=== PATIENT | male | born 2000 | race Caucasian/White ===

== ENCOUNTER 2022-05-05 20:52 | Emergency (ER) | payer OTHER, SELFPAY ==
[2022-05-05 21:01] VITALS: BP 124/82; PULSE 78; RESP 14; TEMP 36.8; O2SAT 97
[2022-05-05] MEDS: Lidocaine 1% Multi-Dose 20 ML VIAL (21:12)
--- NOTE | 2022-05-05 21:13 | ED.GENADUL_ITS ---
Discharge Plan Disposition Patient Disposition: HOME Condition: Stable Discharge Details Chief Complaint: Orthopedic Clinical Impression: Injury of right middle finger Primary Care Provider: Melany,Local ED Provider: Shan Damon Home Meds and New Rx's Prescriptions: No Action No Known Home Meds Discharge Instructions Additional Instructions: call orthopedics tomorrow for an appointment for reevaluation of your finger and tendons your xray did not show a broken bone you can take ibuprofen and tylenol as needed for pain, follow dosing instructions on packaging Referrals: Martin Mondragon MD [ [facility] STAFF PHYSICIAN] - Medical Decision Making 22 yo male with no chronic medical problems comes in with cc of right distal middle finger injury. HE states tonight he was playing basketball when another player came down and hit his right distal middle finger. He denies falls or other injuries. He has pain only of the distal right middle finger. His right middle finger at the dip joint is in flexion and can't extend it. He has no other tenderness other than the dip joint. no open skin and normal cap refill. Suspect dip joint dislocation, will obtain xrays to further evaluate xray shows no obvious fracture or dislocation, suspect extensor tendon injury, will place in splint and place on ortho follow up list. Return precautions given Differential Diagnosis Differential Diagnosis: dislocation, fracture Imaging Data Radiologic Study: Attestation: I personally reviewed and interpreted this imaging study as follows: Imaging: X-Ray Radiologist's impression: IMPRESSION: Contracture of the distal 3rd interphalangeal joint. No discrete fracture HPI General Mode of arrival: ambulatory . Date/Time Provider Initiated Documentation: 05/05/22 21:06 . Limitations to Documentation: no limitations . Information obtained by: patient . History of Present Illness 22 year old M presents to the emergency department with the chief complaint of right middle finger pain, described as moderate, and it has been constant. No relieving factors improve symptom(s), No exacerbating factors reported . Patient notes no other symptoms.. Patient did receive the following treatments prior to arrival, none Related Data Home Medications Medication Instructions Recorded Confirmed Unknown [No Known Home Meds] 05/05/22 05/05/22 Allergies Allergy/AdvReac Type Severity Reaction Status Date / Time No Known Allergies Allergy Unverified 05/05/22 21:06 General Stated Complaint: Orthopedic AZIZA: 4 Review of Systems All systems reviewed & are unremarkable except as noted in HPI and below Constitutional Constitutional: Denies chills, Denies fever(s) and Denies weakness Cardiovascular Cardiovascular: Denies chest pain and Denies dyspnea Respiratory Respiratory: Denies cough and Denies dyspnea Gastrointestinal Gastrointestinal: Denies abdominal pain, Denies nausea and Denies vomiting Neurologic Neurologic: Denies weakness PFSH All Active Problems (Updated 05/05/22 @ 22:17 by Shan Damon MD) Injury of right middle finger (Acute) Social History Smoking/Tobacco Use Status: Never Smoking risk assessment performed?: Yes Alcohol Intake: never Substance use type: does not use Do you feel safe at home: Yes Do you feel safe in your relationship?: Yes Exam Const General: no acute distress Orientation: alert HENMT Head: normal to inspection Ears: external ears normal General nose exam: external nose normal Mouth: moist mucous membranes Eyes General: appearance normal, both eyes and all related structures Neck Neck: normal visual inspection Resp Effort & Inspection: normal respiratory effort and able to speak in complete sentences Cardio Rate: regular rate Skin General skin exam: no rashes or lesions noted Neuro General: patient alert and patient oriented x3 Extrem General: capillary refill normal Psych Mental Status: mental status grossly normal Course Vital Signs Vital signs: Vital Signs Temperature 36.8 C 05/05/22 21:01 Pulse 78 05/05/22 21:01 Respiratory Rate 14 05/05/22 21:01 Blood Pressure 124/82 05/05/22 21:01 Pulse Oximetry 97 05/05/22 21:01 Temperature 36.8 C 05/05/22 21:01 Temperature Source Skin 05/05/22 21:01 Pulse 78 05/05/22 21:01 Respiratory Rate 14 05/05/22 21:01 Blood Pressure 124/82 05/05/22 21:01 Blood Pressure Position Sitting 05/05/22 21:01 Pulse Oximetry 97 05/05/22 21:01 Oxygen Delivery Method Room Air 05/05/22 21:01 Oxygen Flow Rate 0 05/05/22 21:01 Pain Level 0 05/05/22 21:01 Comment denies ice or otc pain relief 05/05/22 21:01
--- NOTE | 2022-05-05 21:34 | DI.RAD_ITS ---
Exam(s) XR FINGER RT MIDDLE EXAM: XR FINGER RT MIDDLE CLINICAL HISTORY: distal finger deformity. TECHNIQUE: 2D digital imaging was performed. COMPARISON: No exams were available for comparison FINDINGS: 3 views No evidence of acute fracture but there is a flexion deformity at the level of the DIP joint of the 3 rd-middle finger. This implies unopposed flexion most probably related to pathology of the extensor tendon. IMPRESSION: DATA REPOSITORY: RADIATION DOSE DELIVERED:
--- NOTE | 2022-05-05 21:37 | DI.VRAD_ITS ---
PROCEDURE INFORMATION: Exam: XR Right Finger(s) Exam date and time: 05/05/2022 9:27 PM Age: 22 years old Clinical indication: Other: Distal finger deformity TECHNIQUE: Imaging protocol: Radiologic exam of the Right fingers. Views: Minimum 2 views. COMPARISON: No relevant prior studies available. FINDINGS: Bones/joints: Contracture of the distal 3rd interphalangeal joint. No discrete fracture or dislocation Soft tissues: Swelling of the 3rd finger IMPRESSION: Contracture of the distal 3rd interphalangeal joint. No discrete fracture Dictated and Authenticated by: Seamus Cook MD. Ordering:BUSHRA Torrez MD
== END 2022-05-05 22:21 | disposition home or self-care (01) ==
PROVIDERS: Emergency Provider Emergency Medicine
DX: S69.91XA Unspecified injury of right wrist, hand and finger(s), initial encounter (principal); W50.0XXA Accidental hit or strike by another person, initial encounter; Y93.67 Activity, basketball
CPT/HCPCS: 29130; 99283; 73140; 99282; J3490

== ENCOUNTER 2022-07-19 15:55 | Outpatient (CLI) | payer OTHER, SELFPAY ==
--- NOTE | 2022-07-19 15:45 | DI.RAD_ITS ---
Exam(s) XR ANKLE RT COMPLETE EXAM: XR ANKLE RT COMPLETE CLINICAL HISTORY: ankle pain. TECHNIQUE: 2D digital imaging was performed of the right ankle. Three images were obtained. AP, la teral and oblique views were obtained. COMPARISON: DX Ankle 3 View RT from 07/11/2022 FINDINGS: BONES: The triangular density at the inferior tip of the lateral malleolus is unchanged. No bony tray tructive lesion is seen. JOINTS: The ankle mortise is normally aligned. SOFT TISSUE: Mild soft tissue swelling around the ankle. IMPRESSION: No change in appearance of the ankle since 07/11/2022. DATA REPOSITORY: RADIATION DOSE DELIVERED:
== END 2022-07-19 15:56 | disposition home or self-care (01) ==
LOC: DIORS 15:56
PROVIDERS: Visit Provider Student in an Organized Health Care Education/Training Program
DX: M25.571 Pain in right ankle and joints of right foot (principal)
CPT/HCPCS: 73610

== ENCOUNTER 2022-08-09 11:26 | Outpatient (CLI) | payer OTHER, SELFPAY ==
--- NOTE | 2022-08-09 11:15 | DI.RAD_ITS ---
Exam(s) XR ANKLE RT COMPLETE EXAM: XR ANKLE RT COMPLETE CLINICAL HISTORY: right fibula fx f/u. TECHNIQUE: 2D digital imaging was performed of the right ankle. Three images were obtained. AP, la teral and oblique views were obtained. COMPARISON: CR XR ANKLE RT COMPLETE from 07/19/2022 FINDINGS: BONES: The triangular bony fragment at the tip of the lateral malleolus is unchanged. No bony destru ctive lesion is seen. JOINTS: The ankle mortise is normally aligned. SOFT TISSUE: Normal. IMPRESSION: Stable right ankle. DATA REPOSITORY: RADIATION DOSE DELIVERED:
== END 2022-08-09 11:27 | disposition home or self-care (01) ==
LOC: DIORS 11:26
PROVIDERS: Visit Provider Student in an Organized Health Care Education/Training Program
DX: S82.831D Other fracture of upper and lower end of right fibula, subsequent encounter for closed fracture with routine healing (principal); X58.XXXD Exposure to other specified factors, subsequent encounter
CPT/HCPCS: 73610

== ENCOUNTER 2022-11-30 14:59 | Outpatient (CLI) | payer OTHER, SELFPAY ==
--- NOTE | 2022-11-30 14:00 | DI.RAD_ITS ---
Exam(s) XR SHOULDER RT COMPLETE 2+V EXAM: XR SHOULDER RT COMPLETE 2+V CLINICAL HISTORY: Right shoulder pain. TECHNIQUE: 2D digital imaging was performed of the right shoulder. Three images were obtained. AP, Y and axillary views were obtained. COMPARISON: No exams were available for comparison FINDINGS: BONES: No acute fracture is present. No bony destructive lesion is seen. JOINTS: No dislocation present. SOFT TISSUE: Normal. IMPRESSION: Unremarkable radiographs of the right shoulder. DATA REPOSITORY: RADIATION DOSE DELIVERED:
== END 2022-11-30 15:00 | disposition home or self-care (01) ==
LOC: DIORS 14:59
PROVIDERS: Visit Provider Student in an Organized Health Care Education/Training Program
DX: M25.511 Pain in right shoulder (principal)
CPT/HCPCS: 73030